=== PATIENT | female | born 1965 | race Caucasian/White ===

== ENCOUNTER → 2016-10-10 | Outpatient (CLI) | payer OTHER | LOC: FIMAGING 12:15 | PROVIDERS: ATTEND Family Medicine | DX: Z12.31 Encounter for screening mammogram for malignant neoplasm of breast (principal) | CPT/HCPCS: G0202 ==

== ENCOUNTER → 2016-10-13 | Outpatient (CLI) | payer OTHER | LOC: FIMAGING 12:49 | PROVIDERS: ATTEND Family Medicine | DX: N20.0 Calculus of kidney (principal); K76.0 Fatty (change of) liver, not elsewhere classified; M47.897 Other spondylosis, lumbosacral region ==

== ENCOUNTER → 2016-11-05 | Outpatient (CLI) | payer OTHER | LOC: FIMAGING 07:40 | PROVIDERS: ATTEND Family Medicine | DX: D73.4 Cyst of spleen (principal); N20.0 Calculus of kidney; K76.0 Fatty (change of) liver, not elsewhere classified ==